=== PATIENT | female | born 1975 | race Caucasian/White ===

== ENCOUNTER 2017-04-17 21:14 | Observation (INO) ==
[2017-04-17] MEDS ORDERED: Aspirin 81 MG TAB.CHEW PO ONE (21:21)
[2017-04-17] MEDS ORDERED: Nitroglycerin 1 INCH/GM PACKET TP ONE (21:21)
--- NOTE | 2017-04-17 21:25 | Emergency Department Note ---
Disposition Clinical Impression: Chest pain Qualifiers: Chest pain type: unspecified Qualified Code(s): R07.9 - Chest pain, unspecified Disposition: Admitted As Inpatient Condition: Good Referrals: Mandy Chaudhari MD [Primary Care Provider] - Forms: ED Satisfaction Letter Time of Disposition: 22:47 Chest Pain HPI - General Chief Complaint: ED Chest Pain Stated Complaint: chest pain Time Seen by Provider: 04/17/17 21:16 Source: patient Limitations: no limitations - History of Present Illness HPI Narrative: Patient presents to the emergency department for evaluation of chest pain. She states that she has been having intermittent midsternal chest pain for the past 2 days without exacerbating or alleviating features. She states that the pain lasts for 2-5 minutes at a time and then resolves frequently throughout the day. She states that this evening she has developed shortness of breath with some diaphoresis. She denies nausea or vomiting. She denies radiation or migration of the pain. She denies recent prolonged immobilization or lower extremity edema or calf discomfort. 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 She reports a family history of coronary artery disease with her father. She reports a personal history of hyperlipidemia and hypertension. Severity scale (1-10): 10 - Related Data Home Medications Medication Instructions Recorded Confirmed Citalopram [CeleXA] 40 mg PO DAILY 03/25/15 04/17/17 Estropipate 0.75 mg PO DAILY 03/25/15 04/17/17 Fexofenadine HCl 60 mg PO QAM 03/25/15 04/17/17 Albuterol Sulfate [Ventolin Hfa] 8 gm IH Q6H PRN 04/02/16 04/17/17 Lovastatin [Mevacor] 20 mg PO QAM 04/02/16 04/17/17 Nitroglycerin [Nitrostat] 0.4 mg SL PRN PRN 04/02/16 04/17/17 Ranolazine [Ranexa] 500 mg PO BID 05/25/16 04/17/17 Alprazolam [Alprazolam Xr] 0.5 mg PO TID 04/17/17 04/17/17 Aripiprazole [Abilify] 5 mg PO DAILY 04/17/17 04/17/17 Lansoprazole [Prevacid] 30 mg PO BID 04/17/17 04/17/17 Allergies Allergy/AdvReac Type Severity Reaction Status Date / Time Procaine [From Novocain] Allergy Cramping Verified 04/17/17 21:15 of the Muscles ibuprofen AdvReac Nausea Verified 04/17/17 21:15 Constitutional: Reports: weakness. Denies: fever, chills Eyes: Denies: vision change ENT ED: Denies: dysphagia Cardiovascular: Reports: chest pain, dyspnea on exertion. Denies: palpitations , orthopnea, edema, syncope Respiratory: Reports: dyspnea. Denies: cough, wheezes, hemoptysis Gastrointestinal: Denies: abdominal pain, nausea, vomiting, diarrhea Musculoskeletal: Denies: back pain, neck pain, joint swelling Integumentary: Denies: rash Neurological: Denies: headache, weakness, numbness, paresthesias Endocrine: Reports: fatigue Hematological/Lymphatic: Denies: easy bruising, lymphadenopathy Chest Pain PMH - Past Medical History Medical history: Reports: asthma, COPD, GERD, hyperlipidemia, hypertension, other Surgical history: Reports: breast surgery, cholecystectomy, hysterectomy, other Psychiatric history: Reports: anxiety, depression OCULAR CARE AIDE history: Reports: bilateral tubal ligation - Social History Smoking Status: Former smoker Alcohol use: Reports: none Drug use: Reports: none Physical Exam - General Limitations: no limitations General appearance: alert, in no apparent distress - Head Head exam: atraumatic, normocephalic, normal inspection - Eye Eye exam: Present: PERRL. Absent: scleral icterus - ENT ENT exam: normal exam, normal oropharynx, mucous membranes moist - Respiratory Respiratory exam: Present: normal lung sounds bilaterally - Cardiovascular Cardiovascular exam: Present: regular rate, normal rhythm, normal heart sounds - Abdominal Exam Abdominal exam: Present: soft, Non-Tender, normal bowel sounds. Absent: tenderness, distention, guarding, rebound, rigidity - Extremities Exam Extremities exam: Present: normal inspection, full ROM. Absent: tenderness, pedal edema, calf tenderness - Expanded Lower Extremity Exam Neurovascular/Tendon exam: Present: normal capillary refill. Absent: pulse deficit - Back Exam Back exam: Absent: tenderness - Neurological Exam Neurological exam: Present: alert, oriented X3, CN II-XII intact - Psychiatric Psychiatric exam: Present: normal affect, normal mood - Skin Skin exam: Present: warm, dry, intact, normal color Course Vital Signs Temperature 97.8 F 04/17/17 21:14 Pulse Rate 77 04/17/17 21:14 Respiratory Rate 18 04/17/17 21:14 Blood Pressure 107/73 04/17/17 21:14 O2 Sat by Pulse Oximetry 95 04/17/17 21:14 Temperature 97.8 F 04/17/17 21:16 Pulse Rate 77 04/17/17 21:16 Respiratory Rate 18 04/17/17 21:16 Blood Pressure 107/73 04/17/17 21:16 O2 Sat by Pulse Oximetry 95 04/17/17 21:16 Oxygen Delivery Oxygen Delivery Room Air Chest Pain - MDM Narrative Medical decision making narrative: Time 2246: Patient resting comfortably with minimal to no discomfort. I have discussed the case with the hospitalist, pending a second negative troponin the patient will be admitted to the hospitalist service for ongoing evaluation and treatment. - Lab Data Lab results reviewed: Yes I reviewed the patient's lab results. Result diagrams: 04/17/17 21:29 04/17/17 21:29 Lab Results 04/17/17 04/17/17 04/17/17 Range/Units 21:29 21:29 21:29 WBC (4.3-11.1) K/mcL RBC (3.82-4.97) M/mcL Hgb (11.5-15.4) g/dL Hct (35.3-44.9) % MCV (83.0-100.0) fL MCH (28.0-33.3) pg MCHC (31.6-35.5) g/dL RDW (11.5-14.5) % Plt Count (140-400) K/mcL MPV (9.4-12.4) fL Immature Gran % (0-4) % Seg Neutrophils % % Lymphocytes % % Monocytes % % Eosinophils % % Basophils % % Neutrophils # (1.6-8.9) K/mcL Lymphocytes # (0.6-4.6) K/mcL Monocytes # (0.0-1.3) K/mcL Eosinophils # (0.0-0.6) K/mcL Basophils # (0.0-0.2) K/mcL PT 12.9 H (9.4-12.1) Seconds INR 1.2 APTT 36.6 H (26.0-36.0) Seconds Sodium (136-145) mEq/L Potassium (3.5-4.5) mEq/L Chloride (98-109) mEq/L Carbon Dioxide (19-29) mEq/L BUN (7-20) mg/dL Creatinine (0.57-1.11) mg/dL Est GFR ( Amer) (> 60) Est GFR (Non-Af Amer) (> 60) BUN/Creatinine Ratio (6-26) Glucose (70-99) mg/dL Calculated Osmolality (280-300) Calcium (8.6-10.8) mg/dL Total Bilirubin 1.1 (0.2-1.2) mg/dL Direct Bilirubin 0.4 (0.0-0.5) mg/dL Indirect Bilirubin 0.7 (0.0-1.2) mg/dL AST 33 (5-34) Units/L ALT 55 (0-55) Units/L Alkaline Phosphatase 66 (38-126) Units/L Troponin I (0-0.03) ng/mL B-Natriuretic Peptide 19 (0-100) pg/mL Serum Total Protein 7.7 (6.0-8.3) g/dL Albumin 3.5 (3.5-5.0) g/dL Globulin 4.2 H (2.4-3.5) g/dL Albumin/Globulin Ratio 0.8 L (1.1-2.2) Lipase 16 (8-78) Units/L 04/17/17 04/17/17 04/17/17 Range/Units 21:29 21:29 21:29 WBC 6.5 (4.3-11.1) K/mcL RBC 4.82 (3.82-4.97) M/mcL Hgb 13.8 (11.5-15.4) g/dL Hct 41.8 (35.3-44.9) % MCV 86.7 (83.0-100.0) fL MCH 28.6 (28.0-33.3) pg MCHC 33.0 (31.6-35.5) g/dL RDW 12.9 (11.5-14.5) % Plt Count 240 (140-400) K/mcL MPV 11.0 (9.4-12.4) fL Immature Gran % 0.5 (0-4) % Seg Neutrophils % 48.3 % Lymphocytes % 41.8 % Monocytes % 7.1 % Eosinophils % 1.5 % Basophils % 0.8 % Neutrophils # 3.1 (1.6-8.9) K/mcL Lymphocytes # 2.7 (0.6-4.6) K/mcL Monocytes # 0.5 (0.0-1.3) K/mcL Eosinophils # 0.1 (0.0-0.6) K/mcL Basophils # 0.1 (0.0-0.2) K/mcL PT (9.4-12.1) Seconds INR APTT (26.0-36.0) Seconds Sodium 142 (136-145) mEq/L Potassium 3.5 (3.5-4.5) mEq/L Chloride 107 (98-109) mEq/L Carbon Dioxide 23 (19-29) mEq/L BUN 10 (7-20) mg/dL Creatinine 0.94 (0.57-1.11) mg/dL Est GFR ( Amer) > 60 (> 60) Est GFR (Non-Af Amer) > 60 (> 60) BUN/Creatinine Ratio 11 (6-26) Glucose 108 H (70-99) mg/dL Calculated Osmolality 294 (280-300) Calcium 9.6 (8.6-10.8) mg/dL Total Bilirubin (0.2-1.2) mg/dL Direct Bilirubin (0.0-0.5) mg/dL Indirect Bilirubin (0.0-1.2) mg/dL AST (5-34) Units/L ALT (0-55) Units/L Alkaline Phosphatase (38-126) Units/L Troponin I 0.00 (0-0.03) ng/mL B-Natriuretic Peptide (0-100) pg/mL Serum Total Protein (6.0-8.3) g/dL Albumin (3.5-5.0) g/dL Globulin (2.4-3.5) g/dL Albumin/Globulin Ratio (1.1-2.2) Lipase (8-78) Units/L ITS Impressions Chest X-Ray 04/17/17 21:21 IMPRESSION: No acute cardiopulmonary abnormality. D/ / Kemar Jurado MD / Kemar Jurado MD Interpreting Provider: Kemar Jurado MD - Radiology Data Radiology results reviewed: Yes I reviewed the patient's radiology results. - EKG Data EKG attestation: Yes I reviewed and interpreted this EKG. EKG shows normal: sinus rhythm (Normal sinus rhythm a rate of 67. T-wave inversion V1 through V3. No acute ST elevation. The T-wave inversions are present on a prior EKG available for comparison)
[2017-04-17 21:37] LABS: Basophils # 0.1 K/mcL (0.0-0.2); Basophils % 0.8 %; Eosinophils # 0.1 K/mcL (0.0-0.6); Eosinophils % 1.5 %; Hematocrit 41.8 % (35.3-44.9); Hemoglobin 13.8 g/dL (11.5-15.4); Immature Granulocytes % 0.5 % (0-4); Lymphocytes # 2.7 K/mcL (0.6-4.6); Lymphocytes % 41.8 %; Mean Corpuscular Hemoglobin 28.6 pg (28.0-33.3); Mean Corpuscular Volume 86.7 fL (83.0-100.0); Monocytes # 0.5 K/mcL (0.0-1.3); Monocytes % 7.1 %; Neutrophils # 3.1 K/mcL (1.6-8.9); Platelet Count 240 K/mcL (140-400); Red Blood Count 4.82 M/mcL (3.82-4.97); Red Cell Distribution Width 12.9 % (11.5-14.5); Segmented Neutrophils % 48.3 %
[2017-04-17 21:44] LABS: INR 1.2; Prothrombin Time 12.9 Seconds (9.4-12.1)
[2017-04-17 21:46] LABS: Activated Partial Thrombo Time 36.6 Seconds (26.0-36.0)
[2017-04-17 21:53] LABS: BUN/Creatinine Ratio 11 (6-26); Blood Urea Nitrogen 10 mg/dL (7-20); Calcium 9.6 mg/dL (8.6-10.8); Carbon Dioxide 23 mEq/L (19-29); Chloride 107 mEq/L (98-109); Glucose 108 mg/dL (70-99); Osmolality,Calculated 294 (280-300); Potassium 3.5 mEq/L (3.5-4.5); Sodium 142 mEq/L (136-145); eGFR For African Americans > 60 (> 60); eGFR For Non-African Americans > 60 (> 60)
[2017-04-17 21:56] LABS: Albumin 3.5 g/dL (3.5-5.0); Albumin/Globulin Ratio 0.8 (1.1-2.2); Bilirubin,Direct 0.4 mg/dL (0.0-0.5); Bilirubin,Indirect 0.7 mg/dL (0.0-1.2); Bilirubin,Total 1.1 mg/dL (0.2-1.2); Globulin 4.2 g/dL (2.4-3.5); Total Protein 7.7 g/dL (6.0-8.3)
[2017-04-17] MEDS ORDERED: Acetaminophen 325 MG TABLET PO PRN (22:40)
[2017-04-17] MEDS ORDERED: Naloxone 0.4 MG/ML INJ IVP PRN (22:40)
[2017-04-18 04:53] LABS: Basophils # 0.1 K/mcL (0.0-0.2); Basophils % 0.6 %; Eosinophils # 0.1 K/mcL (0.0-0.6); Eosinophils % 0.9 %; Hematocrit 38.2 % (35.3-44.9); Hemoglobin 12.8 g/dL (11.5-15.4); Immature Granulocytes % 0.4 % (0-4); Lymphocytes # 2.6 K/mcL (0.6-4.6); Lymphocytes % 32.2 %; Mean Corpuscular HGB Conc 33.5 g/dL (31.6-35.5); Mean Corpuscular Volume 86.4 fL (83.0-100.0); Mean Platelet Volume 11.4 fL (9.4-12.4); Monocytes # 0.5 K/mcL (0.0-1.3); Monocytes % 6.4 %; Neutrophils # 4.7 K/mcL (1.6-8.9); Platelet Count 231 K/mcL (140-400); Red Blood Count 4.42 M/mcL (3.82-4.97); Red Cell Distribution Width 12.9 % (11.5-14.5); Segmented Neutrophils % 59.5 %
[2017-04-18 05:16] LABS: BUN/Creatinine Ratio 15 (6-26); Blood Urea Nitrogen 13 mg/dL (7-20); Calcium 9.4 mg/dL (8.6-10.8); Carbon Dioxide 23 mEq/L (19-29); Chloride 107 mEq/L (98-109); Chol/HDL Ratio 4.4 (0-4.9); Cholesterol 149 mg/dL (< 200); Glucose 111 mg/dL (70-99); HDL Cholesterol 34 mg/dL (40-59); LDL Cholesterol,Calculated 83 mg/dL (0-99); Osmolality,Calculated 293 (280-300); Potassium 3.9 mEq/L (3.5-4.5); Sodium 141 mEq/L (136-145); Triglycerides 159 mg/dL (< 150); eGFR For African Americans > 60 (> 60); eGFR For Non-African Americans > 60 (> 60)
[2017-04-18] MEDS ORDERED: Ranolazine 500 MG TAB.ER.12H PO SCH (09:00)
[2017-04-18] MEDS ORDERED: Loratadine 10 MG TABLET PO SCH (09:00)
[2017-04-18] MEDS ORDERED: ARIPiprazole 5 MG TABLET PO SCH (09:00)
[2017-04-18] MEDS ORDERED: ALPRAZolam 0.5 MG TABLET PO SCH (09:00)
[2017-04-18 10:24] VITALS: BP 93/59
--- NOTE | 2017-04-18 11:40 | Internal Med History&Physical ---
Date of Encounter: 04/18/17 Time of Encounter: 11:10 Assessment and Plan (1) Chest pain Current visit: Yes Status: Acute Repeat cardiac enzymes were ordered through emergency room. Suspect costosternal joint etiology. Qualifiers: Chest pain type: unspecified Qualified Code(s): R07.9 - Chest pain, unspecified Internal Medicine - H&P: HPI Chief complaint: Chest pain Admitted From: Home Plans for Post Hospital Care: Home History of present illness: Ms. Haynes is a 42 year old female who came to emergency room stating she had onset of discomfort in her chest April 15 while at leisure. She describes it as a sharp sensation that later became heavy. When it did not resolve spontaneously she took a SL nitroglycerin with slight improvement. Pain persisted overnight and was present the following day. She took an additional nitroglycerin with no relief. The following day she felt she was getting dyspneic and the pain had not improved. She was evaluated in emergency room and admitted to [facility] floor for ongoing care needs. She states she had previous similar pain in the past. She had a heart catheter 2015 at [facility] which did not require intervention. He states that it showed "heart failure". She reports previous heart catheter 2012 showed noncritical stenosis with LVEF of 55%. She denies DVT or pulmonary embolus. Past Med Surg Social Fam HX - Past Medical History Medical history: asthma, COPD, GERD, hyperlipidemia, hypertension, other Psychiatric history: anxiety, depression - Past Surgical History Surgical History: breast surgery, cholecystectomy, hysterectomy, other - Social History Smoking Status: Former smoker Smokeless Tobacco Status: No Alcohol use: none Drug use: none Internal Medicine - H&P: Meds Citalopram [CeleXA] 40 mg PO DAILY 03/25/15 [History] Estropipate 0.75 mg PO DAILY 03/25/15 [History] Fexofenadine HCl 60 mg PO QAM 03/25/15 [History] Albuterol Sulfate [Ventolin Hfa] 8 gm IH Q6H PRN 04/02/16 [History] Lovastatin [Mevacor] 20 mg PO QAM 04/02/16 [History] Nitroglycerin [Nitrostat] 0.4 mg SL PRN PRN 04/02/16 [History] Ranolazine [Ranexa] 500 mg PO BID 05/25/16 [History] Alprazolam [Alprazolam Xr] 0.5 mg PO TID 04/17/17 [History] Aripiprazole [Abilify] 5 mg PO DAILY 04/17/17 [History] Lansoprazole [Prevacid] 30 mg PO BID 04/17/17 [History] 3 Allergy/AdvReac Type Severity Reaction Status Date / Time Procaine [From Novocain] Allergy Cramping Verified 04/17/17 21:15 of the Muscles ibuprofen AdvReac Nausea Verified 04/17/17 21:15 All Systems PM: A 10-system review of systems was performed and is negative for pertinent findings except as documented above in the HPI. Review of systems: Gen.: Her weight has decreased from 92.079 kg May 2014 [facility] hospitalization to 90.718 kg now Cardiovascular: As per history of present illness Respiratory: She smoked from age [age] up to 1-1/2 packs per day. She reports PFTs earlier this year which showed moderate COPD. She had negative workup for HEIDY past. 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 GI: She has had cholecystectomy and has GERD but denies disorders of her liver or exocrine pancreas : She denies hematuria dysuria or kidney stones Neurologic: No history of strokes or seizures Endocrine: She has a thyroid nodule. She has hyperlipidemia but denies diabetes Hematology/oncology: She denies blood disorders cancers or anemia Psychiatric: She has anxiety and depression Musk skeletal: She has DJD but no known gout or other bone joint or muscle disorders. - Constitutional Vitals: Temp Pulse Resp BP Pulse Ox 98.8 F 59 17 93/59 96 04/18/17 10:24 04/18/17 10:24 04/18/17 10:24 04/18/17 10:24 04/18/17 10:24 Exam: Gen.: She is a well-developed well-nourished female lying in bed who appears in no acute distress HEENT: Head is atraumatic and normocephalic. Eyes: EOMI. There is no scleral icterus. Mouth: Mucosa is moist. Neck: Supple and nontender. There is no thyromegaly or adenopathy noted. Heart: Regular without murmurs gallops or ectopics Chest: She has tenderness on pressing the left costosternal joints stating " that is the pain" Lungs: No wheezes or crackles are heard. Abdomen: Soft and nontender. No masses or guarding noted. Extremities: There is no cyanosis edema or clubbing noted. Dorsalis pedis and posterior tibial pulses are 1-2/2 bilaterally. Neurologic: Mental status: She is talkative and a good historian. Cranial nerves: Smile is symmetric. Forehead wrinkles bilaterally. Tongue protrudes midline. EOMI. Motor: There is no pronator drift. Cerebellar: Finger to nose is intact bilaterally. Skin: Warm and dry Internal Med - H&P Results - Labs CBC & Chem 7: 04/18/17 04:30 04/18/17 04:30 Labs: Short CBC 04/18/17 Range/Units 04:30 WBC 7.9 (4.3-11.1) K/mcL Hgb 12.8 (11.5-15.4) g/dL Hct 38.2 (35.3-44.9) % Plt Count 231 (140-400) K/mcL Neutrophils # 4.7 (1.6-8.9) K/mcL BMP 04/18/17 04:30 Sodium 141 Potassium 3.9 Chloride 107 Carbon Dioxide 23 BUN 13 Creatinine 0.86 Glucose 111 H Calcium 9.4 Cardiac Enzymes 04/18/17 Range/Units 04:30 Troponin I 0.00 (0-0.03) ng/mL
--- NOTE | 2017-04-18 11:50 | Discharge Summary ---
Date of Encounter: 04/18/17 Time of Encounter: 11:10 - Discharge Diagnosis (1) Chest pain Priority: Primary Status: Acute Qualifiers: Chest pain type: unspecified Qualified Code(s): R07.9 - Chest pain, unspecified - Discharge Medications Prescriptions: Naproxen [Naprosyn] 500 mg PO BID #10 tablet Home Medications: Citalopram [CeleXA] 40 mg PO DAILY 03/25/15 [History] Estropipate 0.75 mg PO DAILY 03/25/15 [History] Fexofenadine HCl 60 mg PO QAM 03/25/15 [History] Albuterol Sulfate [Ventolin Hfa] 8 gm IH Q6H PRN 04/02/16 [History] Lovastatin [Mevacor] 20 mg PO QAM 04/02/16 [History] Nitroglycerin [Nitrostat] 0.4 mg SL PRN PRN 04/02/16 [History] Ranolazine [Ranexa] 500 mg PO BID 05/25/16 [History] Alprazolam [Alprazolam Xr] 0.5 mg PO TID 04/17/17 [History] Aripiprazole [Abilify] 5 mg PO DAILY 04/17/17 [History] Lansoprazole [Prevacid] 30 mg PO BID 04/17/17 [History] Naproxen [Naprosyn] 500 mg PO BID #10 tablet 04/18/17 [Rx] Allergies/Adverse Reactions: 3 Allergy/AdvReac Type Severity Reaction Status Date / Time Procaine [From Novocain] Allergy Cramping Verified 04/17/17 21:15 of the Muscles ibuprofen AdvReac Nausea Verified 04/17/17 21:15 Date of admission: 04/17/17 23:33 Primary care physician: Mandy Chaudhari - Patient Status Disposition: Home, Self-Care Condition: Good Functional capacity at discharge: independent ambulation Overall status at discharge: patient is progressing back to baseline - Discharge Instructions Instructions: Chest Pain (DC) - Diet and Activity Activity: resume usual activities as tolerated Diet: advance to your usual diet Hospital course: Ms. Haynes is a 42 year old female who came to emergency room stating she had onset of discomfort in her chest April 15 while at leisure. She describes it as a sharp sensation that later became heavy. When it did not resolve spontaneously she took a SL nitroglycerin with slight improvement. Pain persisted overnight and was present the following day. She took an additional nitroglycerin with no relief. The following day she felt she was getting dyspneic and the pain had not improved. She was evaluated in emergency room and admitted to [facility] for ongoing care needs. Initial orders were written by the emergency room physician. I saw her on April 18 and performed the history and physical and discharge. Repeat cardiac enzymes showed no evidence of myocardial damage. When I saw her I felt she likely had costosternal joint pain since the pain was completely reproduced by pressing on the left costosternal joints. She was given Naprosyn and will be discharged home and follow with her PCP Dr. Chaudhari within 1 week. She was given 5 day supply of Naprosyn. - Time Spent with Patient Total time spent providing and/or coordinating discharge services: - Constitutional Vitals: Temp Pulse Resp BP Pulse Ox 98.8 F 59 17 93/59 96 04/18/17 10:24 04/18/17 10:24 04/18/17 10:24 04/18/17 10:24 04/18/17 10:24
--- NOTE | 2017-04-18 13:36 | Electrocardiograph Report ---
[address] [place], [place] [address] Test Date: 2017-04-17 Pat Name: Rosie Unioncy Department: [id number] Room: 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
--- NOTE | 2017-04-19 16:56 | Electrocardiograph Report ---
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
== END 2017-04-18 12:03 | disposition home or self-care (01) ==
LOC: EMEROOPIK 21:14 → INPPIK 21:14
PROVIDERS: ADMIT Internal Medicine; ATTEND Internal Medicine